=== PATIENT | female | born 1995 | race Caucasian/White ===

== ENCOUNTER 2020-08-23 09:13 | Emergency (ER) | payer OTHER, SELFPAY ==
[2020-08-23 09:20] VITALS: BP 128/76; PULSE 64; RESP 16; TEMP 36.6; O2SAT 99
[2020-08-23] MEDS: LIDOCAINE HCL 1% LOCAL INJ 20 ML VIAL (09:36)
[2020-08-23] MEDS: TETANUS,DIPHTHERIA,AC PERTUSSIS ADULT 0.5 ML (ADACEL) (09:51)
--- NOTE | 2020-08-23 10:08 | ED.WOUNDLAC ---
HPI - Wound/Laceration General Chief Complaint: Wound/Laceration Stated Complaint: CUT FOOT Time Seen by Provider: 08/23/20 09:23 Source: patient and family Mode of arrival: ambulatory Limitations: no limitations History of Present Illness HPI narrative: Right great toe laceration x 30 mins. Onset (ago): minute(s) Location: other (right great toe) Extremity Location: Right: foot Place: work Patient tetanus UTD: No Context: accidental Associated symptoms: none Treatments prior to arrival: bandage Related Data Allergies Allergy/AdvReac Type Severity Reaction Status Date / Time No Known Allergies Allergy Unknown Unverified 08/30/16 17:36 Review of Systems Review of Systems: All systems reviewed & are unremarkable except as noted in HPI and below Constitutional: Constitutional: Reports no additional constitutional complaints Eyes: Eyes: Reports no additional eye complaints ENT: Reports system reviewed and no additional complaints, except as documented Cardiovascular: Cardiovascular: Reports no additional cardiovascular complaints Respiratory: Respiratory: Reports no additional respiratory complaints Gastrointestinal: Gastrointestinal: Reports no additional gastrointestinal complaints Genitourinary: Genitourinary: Reports no additional female genitourinary complaints Musculoskeletal: Musculoskeletal: Reports as per HPI Comments: right great toe laceration Integumentary/Breasts: Skin/Breast: Reports system reviewed and no additional complaints, except as docu Neurologic: Reports system reviewed and no additional complaints, except as documented Psychiatric: Psychiatric: Reports no additional psychiatric complaints Endocrine: Endocrine: Reports no additional endocrine complaints Hematologic/Lymphatic: Hematologic/Lymphatic: Reports no additional hematologic/lymphatic complaints Allergic/Immunologic: Allergic/Immunologic: Reports no additional allergic/immunologic complaints PMFSH Comments Pt had no significant Medical or surgical history. Exam Const: General: no acute distress and alert Orientation/consciousness: patient oriented x3 HENMT: Head: normal to inspection Ears: TM's normal bilaterally Face and sinus: normal facial exam Mouth: Yes moist mucous membranes Eyes: Conjunctivae: conjunctivae normal Pupils: Equal, round and reactive pupils present EOM: EOMs intact bilaterally Neck: Neck: normal visual inspection and no lymphadenopathy Other: supple neck Chest: Chest palpation & inspection: normal inspection of the chest Resp: Effort & Inspection: normal respiratory effort Auscultation: clear to auscultation bilaterally Cardio: Rate: regular rate Rhythm: regular rhythm GI: GI Palp: Yes Soft to palpation Percussion: Yes normal to percussion and Yes other (non-tender.) Auscultation: normal bowel sounds Back/Spine/Pelvis: Back: no CVA tenderness Skin: General skin exam: normal color Rashes: no rashes Wounds: no wounds (1.5 cm well approx linear laceration to medial right great toe. no bleedin) Neuro: General: patient oriented x3, moves all extremities and no focal motor deficits Speech: normal speech Extrem: General: normal to inspection (right great toe laceration) Psych: Mental Status: mental status grossly normal Affect: normal affect Attitude: cooperative Thought content: Yes Normal thought content present Course Course Emergency Course: pt was stable in the ED. the right great toe laceration was irrigated, LA via 1% lidocaine + #2 3/0 nylon sutures were placed for hemostasis and skin approximation. Well tolerated. pt for home with Amoxil Rx. Reevaluation(s) Date: 08/23/20 Time: 10:20 Vital Signs Vital signs: Vital Signs Temperature 36.6 C 08/23/20 09:20 Pulse Rate 64 08/23/20 09:20 Respiratory Rate 16 08/23/20 09:20 Blood Pressure 128/76 08/23/20 09:20 Pulse Oximetry 99 08/23/20 09:20 Temperature 36.6 C 08/23/20 09:20 Pulse Rate 64 06/3
--- NOTE | 2020-08-23 10:13 | PC.NURSE ---
2 sutures placed in laceration to right great tor by erp
[2020-08-23] MEDS: IBUPROFEN 400 MG TABLET 800 MG PO (10:25)
[2020-08-23 10:30] VITALS: BP 117/66; PULSE 60; RESP 13; O2SAT 100
--- NOTE | 2020-08-23 10:48 | PC.NURSE ---
bulky dressing placed on right great toe as directed by erp
== END 2020-08-23 10:40 | disposition home or self-care (01) ==
PROVIDERS: Emergency Provider Emergency Medicine
DX: S91.111A Laceration without foreign body of right great toe without damage to nail, initial encounter (principal); W45.8XXA Other foreign body or object entering through skin, initial encounter
CPT/HCPCS: 12001; 90471; 90715; 99283; A9270

== ENCOUNTER 2021-05-16 15:08 | Outpatient (CLI) | payer OTHER, SELFPAY ==
[2021-05-16 16:54] LABS: Basophils Percent Auto 0.4 % (0.2-1.2); Eosinophils Percent Auto 0.2 % (0-4.4); Hematocrit 38.4 % (37.0-47.0); Hemoglobin 12.8 g/dL (12.0-15.0); Immature Granulocyte Absolute 0.03 K/mm3 (0.00-0.031); Immature Granulocyte Percent A 0.3 % (0-0.5); Lymphocytes Absolute Auto 2.14 K/mm3 (0.9-3.2); Lymphocytes Percent Auto 21.9 % (18.3-44.2); Mean Corpuscular HGB Conc 33.3 g/dl (32-36); Mean Platelet Volume 11.3 fl (7.4-10.4); Monocytes Absolute Auto 0.6 K/mm3 (0.1-0.6); Monocytes Percent Auto 6.2 % (2.6-8.5); Neutrophils Absolute Auto 6.9 K/mm3 (1.3-6.7); Platelet Count Result 278 k/mm3 (150-375); Red Blood Count 4.13 M/mm3 (4.2-5.4); Red Cell Distribution Width 12.4 % (11.5-14.5); White Blood Count 9.8 K/mm3 (4.5-10.0)
[2021-05-16 17:27] LABS: Alanine Aminotransferase 11 U/L (4-35); Albumin Level 5.1 g/dL (3.5-5.1); Alkaline Phosphatase 71 U/L (38-126); Anion Gap 10 mmol/L (8-16); Aspartate Amino Transferase 24 U/L (14-36); Bilirubin,Total 0.6 mg/dL (0.2-1.3); Blood Urea Nitrogen 10 mg/dL (7-17); Calcium 9.3 mg/dL (8.4-10.2); Carbon Dioxide 25 mmol/L (22-30); Chloride 101 mmol/L (98-107); Estimated Glomerular Filt Rate > 60; Glucose 80 mg/dL (65-110); Potassium 3.9 mmol/L (3.4-5.0); Sodium 136 mmol/L (137-145)
[2021-05-16 18:06] LABS: HIV 1/2 Ab P24 Ag Result Negative (Negative)
[2021-05-16 18:48] LABS: Hepatitis C Virus Antibody Negative (Negative)
[2021-05-17 11:17] LABS: Rapid Plasma Reagin Non-Reactive (NonReactive)
== END 2021-05-16 15:09 | disposition home or self-care (01) ==
LOC: ANHLAB 15:10
PROVIDERS: PCP Internal Medicine; Visit Provider Nurse Practitioner
DX: N89.8 Other specified noninflammatory disorders of vagina (principal)
CPT/HCPCS: 36415; 80053; 85025; 86592; 86703; 86803; 87491; 87591; G0432

== ENCOUNTER 2021-10-12 14:17 | Emergency (ER) | payer OTHER, SELFPAY ==
[2021-10-12 14:23] VITALS: BP 147/93; PULSE 86; RESP 20; TEMP 36.5; O2SAT 98
--- NOTE | 2021-10-12 14:53 | ED.EYEPROB ---
HPI - Eye Problem General Chief complaint: Eye Problems Stated complaint: scratched left eye Time Seen by Provider: 10/12/21 14:50 Source: patient, RN notes reviewed and old records reviewed Mode of arrival: ambulatory Limitations: no limitations History of Present Illness HPI Narrative: 26 year old female who presents to [facility] care with complaints of scratching her left eye this morning with a [place] plant leave when bent over gardening. Patient reports that she has irritation to her left eye especially when blinking some eye discomfort and also visual blurring. Left eye sclera clear and no conjunctival redness. Patient reports that she has placed warm saline compresses to her eye.Vicsual acuity left eye 20/50, right eye 20/25 without corrective lenses. MD chief complaint: eye pain and vision change (blurry) Onset (ago): hour(s) (this morning) Location: left eye Eye Symptoms: pain, blurry vision and photophobia Severity scale (1-10): 8 Treatments Prior to Arrival: other (warm compresses) Related Data Allergies Allergy/AdvReac Type Severity Reaction Status Date / Time No Known Allergies Allergy Unknown Verified 10/12/21 14:52 Review of Systems Review of Systems: CONSTITUTIONAL: Denies fever, chills, or sweats. EYES: Positive visual changes, redness upper eyelid, no discharge pain and scratchy feeling left eye ENT: Denies rhinorrhea, congestion, sore throat, or otalgia. CARDIOVASCULAR: Denies chest pain, palpitations, or edema. RESPIRATORY: Denies cough or dyspnea. GASTROINTESTINAL: Denies abdominal pain, nausea, vomiting, or diarrhea. GENITOURINARY: Denies dysuria or hematuria. SKIN: Denies rash or itching. MUSCULOSKELETAL: Denies back pain, joint pain, or myalgia. NEUROLOGIC: Denies headache, numbness, or weakness. PSYCHIATRIC: Positive history of anxiety or depression. All systems reviewed & are unremarkable except as noted in HPI and below PMFSH Past Medical History Medical History (Updated 10/13/21 @ 08:20 by An Hill NP) Allergies Anxiety Depression History of chlamydia 2013 History of gonorrhea 2013 Surgical History Surgical History (Updated 09/19/21 @ 11:20 by Jenae Sánchez CMA) H/O removal of cyst Family History Family History Grandparent Alcoholism Mother Alcoholism Depression Father Hypertension Social History Social History (Updated 09/19/21 @ 11:20 by Jenae Sánchez CMA) Smoking packs per day: 0.5 Smoking cigarettes per day: 10.0 Years smoked: 10 Smoking pack-years: 5.00 Smoking status: Current every day smoker Tobacco type: cigarettes and e-cigarettes/vaping Alcohol intake: current Drinks per week: 10 Alcohol use details: 5 beers twice a week Substance use: current Substance use type: marijuana Additional occupation/education comments: self-employed Agree to blood products: Yes Comments At time of signature, agree with nursing past medical, surgical, social and family history. There is no relevant family history pertinent to the presenting complaint Exam Narrative: GENERAL: Well-appearing, well-nourished, and in no acute distress. HEAD: Normocephalic, atraumatic. EYES: PERRLA and EOMI. left eye upper eyelid swollen with pain and scratchy feeling to left eye no drainage or conjunctival redness, sclera clear, no sharp pain verbalized ENT: Nares clear, no rhinorrhea or epistaxis. Mucous membranes moist. NECK: Supple. No lymphadenopathy CHEST: Clear to auscultation. No respiratory distress. SaO2 98% on room air no tachypnea HEART: Regular rate and rhythm. No murmur heard. Normal peripheral pulses. ABDOMEN: Soft, nontender, nondistended, normal active bowel sounds. EXTREMITIES: Normal range of motion. No edema. SKIN: Warm, dry, no rash. NEURO: No focal deficits. Alert and oriented x3. Course Course Level of Care: Express Care Visit Vital Signs Vital signs: Vital Signs Tempera
== END 2021-10-12 15:10 | disposition home or self-care (01) ==
PROVIDERS: Emergency Provider Registered Nurse
DX: S05.02XA Injury of conjunctiva and corneal abrasion without foreign body, left eye, initial encounter (principal); X58.XXXA Exposure to other specified factors, initial encounter; F17.210 Nicotine dependence, cigarettes, uncomplicated; F17.290 Nicotine dependence, other tobacco product, uncomplicated
CPT/HCPCS: 99213; A9270; G0463

== ENCOUNTER 2022-04-08 15:14 | Emergency (ER) | payer OTHER, SELFPAY ==
[2022-04-08 15:21] VITALS: BP 156/80; PULSE 81; RESP 16; TEMP 37.1; O2SAT 98
--- NOTE | 2022-04-08 15:43 | ED.URI ---
HPI - URI/Sore Throat General Chief Complaint: Upper Respiratory Infection Stated Complaint: Sore Throat Time Seen by Provider: 04/08/22 15:40 Source: patient, RN notes reviewed and old records reviewed Mode of arrival: ambulatory Limitations: no limitations History of Present Illness HPI Narrative: 27 year old female who presents to express are with complaints of sore throat for one day with low grade temperature of 100F. Patient also reports some nasal congestion and drainage denies any cough or any shortness of breath. Patient states that she has been taking Ibuprofen for her discomfort which she rates as 8 described as sharp and with painful swallowing. Patient reports that she has noted white spots in the back of her throat. MD elicited complaint: sore throat Onset (ago): day(s) (1) Pain scale (0-10): 8 Able to tolerate fluids by mouth: Yes Treatments prior to arrival: ibuprofen Related Data Allergies Allergy/AdvReac Type Severity Reaction Status Date / Time No Known Allergies Allergy Unknown Verified 10/12/21 14:52 Review of Systems Review of Systems: CONSTITUTIONAL: Reports malaise, chills, sweats, or fever. EYES: Denies visual changes, redness, or discharge. ENT: Reports rhinorrhea, congestion, sinus pain,no otalgia positive sore throat. CARDIOVASCULAR: Denies chest pain, palpitations, or edema. RESPIRATORY: Reports no cough.? Denies dyspnea. GASTROINTESTINAL: Denies abdominal pain, nausea, vomiting, diarrhea SKIN: Denies rash or itching. MUSCULOSKELETAL: Denies myalgia. NEUROLOGIC: Denies headache. All systems reviewed & are unremarkable except as noted in HPI and below PMFSH Past Medical History Medical History Allergies Anxiety Depression History of chlamydia 2013 History of gonorrhea 2013 Surgical History Surgical History H/O removal of cyst Family History Family History Grandparent Alcoholism Mother Alcoholism Depression Father Hypertension Social History Social History (Updated 04/09/22 @ 21:17 by An Hill NP) Smoking packs per day: 0.5 Smoking cigarettes per day: 10.0 Years smoked: 10 Smoking pack-years: 5.00 Smoking status: Former smoker Tobacco type: cigarettes and e-cigarettes/vaping Alcohol intake: current Alcohol use details: social 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 There is no relevant family history pertinent to the presenting complaint Exam Narrative: GENERAL: Well-appearing, well-nourished, and in no acute distress. HEAD: Normocephalic EYES: PERRLA, conjunctivae clear ENT: Nares clear, turbinates edematous and erythematous, clear discharge. Mucous membranes moist. TM pearly snowden with dull light reflex bilaterally; no tragal tenderness. Oropharynx erythematous without lesions. Tonsils enlarged and with white exudate on tonsils,painful swallowing, no drooling, no hoarseness, no trismus, uvula midline. NECK: Supple. lymphadenopathy CHEST: Clear to auscultation, breath sounds equal. No wheezing, rhonchi, rales, or stridor. No respiratory distress, speaks in full sentences.no cough, SAO2 98% on room air HEART: Regular rate and rhythm. No murmur heard. SKIN: Warm, dry, no rash. NEURO: Alert and oriented x3. PSYCH: Normal mood and affect Course Course Emergency Course: Patient is aware of diagnosis, understands and agrees to treatment plan.? Anticipatory guidance given.? Patient agrees to follow-up as directed and is aware of reasons to seek care at the emergency department. Portions of
== END 2022-04-08 16:01 | disposition home or self-care (01) ==
PROVIDERS: Emergency Provider Registered Nurse
DX: J02.0 Streptococcal pharyngitis (principal); F17.290 Nicotine dependence, other tobacco product, uncomplicated
CPT/HCPCS: 87880; 99213; G0463

== ENCOUNTER 2022-12-30 08:26 | Emergency (ER) | payer OTHER, SELFPAY ==
[2022-12-30 08:32] VITALS: BP 144/89; PULSE 108; RESP 20; TEMP 37; O2SAT 100
[2022-12-30] MEDS: methylPREDNISolone SOD SUCC 125 MG VIAL IM (08:55)
--- NOTE | 2022-12-30 08:56 | ED.URI ---
HPI - URI/Sore Throat General Chief Complaint: Upper Respiratory Infection Stated Complaint: throat /ear Time Seen by Provider: 12/30/22 08:50 History of Present Illness HPI Narrative: 27-year-old female presented for complaint of sore throat worsening over the past 3 days. She states she woke this morning with the throat more swollen. She is able to maintain secretions and tolerate small amounts of liquids. Also reports pain to the right ear. Denies headache, cough, nausea vomiting, diarrhea, fevers or chills. Denies sick contacts. Has not taken anything for symptoms. Related Data Allergies Allergy/AdvReac Type Severity Reaction Status Date / Time No Known Allergies Allergy Unknown Verified 12/30/22 09:02 Review of Systems Review of Systems: CONSTITUTIONAL: Denies body aches, fever, chills, or sweats. EYES: Denies visual changes, redness, or discharge. ENT: Reports sore throat, right ear pain Denies rhinorrhea, congestion CARDIOVASCULAR: Denies chest pain, palpitations, or edema. RESPIRATORY: Denies dyspnea. GASTROINTESTINAL: Denies abdominal pain, nausea, vomiting, or diarrhea. SKIN: Denies rash, itching, or wounds. MUSCULOSKELETAL: Denies back pain, joint pain, or myalgia. 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 EYES: conjunctivae clear ENT: Mucous membranes moist. TM pearly snowden with normal light reflex bilaterally; no tragal tenderness. Oropharynx erythematous Right soft palate swelling; Tonsils enlarged Right 4+ Left 3+ with exudate. Hot potato voice. No drooling, no hoarseness, no trismus, uvula midline. No tripod positioning. NECK: Supple. No lymphadenopathy CHEST: Clear to auscultation, breath sounds equal. No respiratory distress, speaks in full sentences. HEART: Regular rate and rhythm. No murmur heard. SKIN: Warm, dry, no rash. NEURO: Alert and oriented x3. Course Course Emergency Course: Patient is aware of diagnosis, understands and agrees to treatment plan. Anticipatory guidance given. Patient agrees to follow-up as directed and is aware of reasons to seek care at the emergency department. Portions of this record may have been created with voice recognition software Level of Care: Express Care Visit Vital Signs Vital signs: Vital Signs Temperature 98.6 F 12/30/22 08:32 Pulse Rate 108 H 12/30/22 08:32 Respiratory Rate 20 12/30/22 08:32 Blood Pressure 144/89 H 12/30/22 08:32 Pulse Oximetry 100 12/30/22 08:32 Oxygen Delivery Room Air 12/30/22 08:32 Temperature 98.6 F 12/30/22 08:32 Pulse Rate 108 H 12/30/22 08:32 Respiratory Rate 20 12/30/22 08:32 Blood Pressure 144/89 H 12/30/22 08:32 Pulse Oximetry 100 12/30/22 08:32 Oxygen Delivery Room Air 12/30/22 08:32 Transfer Transfered to: [facility] Transportation: Other ( Private vehicle) Transfer rationale: Pt is agr
== END 2022-12-30 09:00 | disposition short-term general hospital (02) ==
PROVIDERS: Emergency Provider Nurse Practitioner Family
DX: J02.9 Acute pharyngitis, unspecified (principal); F17.210 Nicotine dependence, cigarettes, uncomplicated; F17.290 Nicotine dependence, other tobacco product, uncomplicated
CPT/HCPCS: 87081; 87880; 96372; 99213; G0463; J2930

== ENCOUNTER 2023-02-27 17:50 | Emergency (ER) | payer OTHER, SELFPAY ==
[2023-02-27 17:56] VITALS: BP 150/101; PULSE 98; RESP 18; TEMP 36.2; O2SAT 100
--- NOTE | 2023-02-27 18:41 | PC.NURSE ---
Pt walked out of dept with boyfriend. This RN attempted to bring her back to room. Boyfriend states she just wants to go Pt walked out with a steady gait
== END 2023-02-27 18:40 | disposition left against medical advice (07) ==
LOC: ANHED 18:55
DX: S40.029A Contusion of unspecified upper arm, initial encounter (principal)
CPT/HCPCS: 99199

== ENCOUNTER 2023-03-17 11:57 | Emergency (ER) | payer OTHER, SELFPAY ==
[2023-03-17 12:06] VITALS: BP 168/97; PULSE 99; RESP 16; TEMP 36.7; O2SAT 100
--- NOTE | 2023-03-17 12:12 | ED.SKABFB ---
HPI - Skin/Abscess/Foreign Bdy General Chief complaint: Skin/Abscess/Foreign Body Stated complaint: Bug Bites Time Seen by Provider: 03/17/23 12:07 Source: patient and RN notes reviewed Mode of arrival: ambulatory Limitations: no limitations History of Present Illness HPI narrative: Patient presents today complaining of insect bites to her back and left leg that were sustained last night while she was staying at a hotel. She has been staying there the last 5 nights. States her boyfriend saw bedbugs in the bed today. She has not tried anything for her itching today. Related Data Home Medications Medication Instructions Recorded Confirmed No Home Medications 03/17/23 03/17/23 Allergies Allergy/AdvReac Type Severity Reaction Status Date / Time No Known Allergies Allergy Unknown Verified 03/17/23 12:12 Review of Systems Review of Systems: CONSTITUTIONAL: Denies body aches, fever, chills, or sweats. EYES: Denies visual changes, redness, or discharge. ENT: Denies rhinorrhea, congestion, sore throat, or otalgia. CARDIOVASCULAR: Denies chest pain, palpitations, or edema. RESPIRATORY: Denies cough or dyspnea. GASTROINTESTINAL: Denies abdominal pain, nausea, vomiting, or diarrhea. GENITOURINARY: Denies dysuria or hematuria. SKIN: + insect bite MUSCULOSKELETAL: Denies back pain, joint pain, or myalgia. NEUROLOGIC: Denies headache, numbness, tingling, or weakness. PSYCH: Denies depression or anxiety. 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 Please see nursing chart for further information. There is no relevant family history pertinent to the presenting complaint Exam Narrative: GENERAL: Well-appearing, well-nourished, and in no acute distress. HEAD: Normocephalic, atraumatic. EYES: EOMI. No redness or drainage. Conjunctivae normal. ENT: Mucous membranes pink and moist. NECK: Normal AROM. CHEST: No respiratory distress. MUSCULOSKELETAL: No bony tenderness. EXTREMITIES: Normal range of motion. No edema. SKIN: Warm, dry. Capillary refill normal. Normal skin turgor. Multiple large erythematous welts to the back, left leg, and right arm. No fluctuance. NEURO: No focal deficits. Alert and oriented x3. Gait steady. PSYCH: Normal affect. No signs of depression or anxiety. Course Course Level of Care: Express Care Visit Vital Signs Vital signs: Vital Signs Temperature 98.1 F 03/17/23 12:06 Pulse Rate 99 03/17/23 12:06 Respiratory Rate 16 03/17/23 12:06 Blood Pressure 168/97 H 03/17/23 12:06 Pulse Oximetry 100 03/17/23 12:06 Oxygen Delivery Room Air 03/17/23 12:06 Temperature 98.1 F 03/17/23 12:06 Pulse Rate 99 03/17/23 12:06 Respiratory Rate 16 03/17/23 12:06 Blood Pressure 168/97 H 03/17/23 12:06 Pulse Oximetry 100 03/17/23 12:06 Oxygen Del
== END 2023-03-17 12:22 | disposition home or self-care (01) ==
PROVIDERS: Emergency Provider Nurse Practitioner
DX: S80.862A Insect bite (nonvenomous), left lower leg, initial encounter (principal); S40.861A Insect bite (nonvenomous) of right upper arm, initial encounter; W57.XXXA Bitten or stung by nonvenomous insect and other nonvenomous arthropods, initial encounter; F17.210 Nicotine dependence, cigarettes, uncomplicated; F17.290 Nicotine dependence, other tobacco product, uncomplicated
CPT/HCPCS: 99211; G0463

== ENCOUNTER 2023-06-28 05:28 | Emergency (ER) | payer OTHER, SELFPAY ==
[2023-06-28 05:34] VITALS: BP 150/93; PULSE 92; RESP 16; TEMP 37.1; O2SAT 100
[2023-06-28 06:16] VITALS: BP 131/92; PULSE 84; RESP 14; O2SAT 100
[2023-06-28 06:28] LABS: Appearance Urine Clear (Clear); Basophils Absolute Auto 0.1 K/mm3 (0.0-0.1); Basophils Percent Auto 0.6 % (0.2-1.2); Bilirubin Urine Negative (Negative); Blood Urine Negative (Negative); Color Urine Yellow (Yellow); Eosinophils Percent Auto 0.2 % (0-4.4); Glucose Urine UA Negative (Negative); Hematocrit 37.4 % (37.0-47.0); Hemoglobin 12.5 g/dL (12.0-15.0); Immature Granulocyte Absolute 0.06 K/mm3 (0.00-0.031); Immature Granulocyte Percent A 0.6 % (0-0.5); Ketones Urine Negative (Negative); Leukocyte Esterase Ur Negative LEU/UL (Negative); Lymphocytes Absolute Auto 1.47 K/mm3 (0.9-3.2); Lymphocytes Percent Auto 15.7 % (18.3-44.2); Mean Corpuscular HGB Conc 33.4 g/dl (32-36); Mean Corpuscular Hemoglobin 30.2 pg (26-34); Mean Corpuscular Volume 90.3 fl (80-100); Mean Platelet Volume 10.2 fl (7.4-10.4); Monocytes Absolute Auto 0.6 K/mm3 (0.1-0.6); Monocytes Percent Auto 5.9 % (2.6-8.5); Neutrophils Absolute Auto 7.2 K/mm3 (1.3-6.7); Nitrate Urine Negative (Negative); Platelet Count Result 455 k/mm3 (150-375); Protein Urine Negative (Negative); Red Blood Count 4.14 M/mm3 (4.2-5.4); Red Cell Distribution Width 12.3 % (11.5-14.5); Specific Grav Ur 1.008 (1.001-1.035); Urobilinogen Urine 0.2 mg/dL (<2.0); White Blood Count 9.4 K/mm3 (4.5-10.0); pH Urine 6.5 (5.0-9.0)
[2023-06-28 06:30] LABS: Add Urine Microscopic? NO
[2023-06-28 06:44] LABS: Ethanol 51 mg/dL (<10)
[2023-06-28 06:46] LABS: Alanine Aminotransferase 15 U/L (6-35); Alkaline Phosphatase 83 U/L (38-126); Anion Gap 11 mmol/L (4-12); Aspartate Amino Transferase 28 U/L (14-36); Bilirubin,Total 0.5 mg/dL (0.2-1.3); Blood Urea Nitrogen 8 mg/dL (7-17); Calcium 9.4 mg/dL (8.4-10.2); Carbon Dioxide 23 mmol/L (22-30); Chloride 108 mmol/L (98-107); Estimated CRCL calculation 104 ml/min; Estimated Glomerular Filt Rate > 60; Glucose 93 mg/dL (65-110); Potassium 4.2 mmol/L (3.4-5.0); Sodium 142 mmol/L (137-145)
[2023-06-28 06:47] LABS: Barbiturate Screen Urine Negative (Negative); Benzodiazepines Screen Urine Negative (Negative)
[2023-06-28 06:58] LABS: Cannabinoid Screen Urine Positive (Negative); Cocaine Screen Urine Negative (Negative); Methadone Screen Urine Negative (Negative); Opiate Screen Urine Negative (Negative); Phencyclidine Screen Urine Negative (Negative)
[2023-06-28 07:00] VITALS: BP 131/90; PULSE 69; RESP 16; O2SAT 100
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
[2023-06-28 08:00] VITALS: BP 121/78; PULSE 76; RESP 16; O2SAT 99
[2023-06-28 09:25] VITALS: BP 132/89; PULSE 88; RESP 12; O2SAT 100
[2023-06-28 14:01] LABS: Amphetamine Screen Urine Positive (Negative)
== END 2023-06-28 09:25 | disposition home or self-care (01) ==
PROVIDERS: Emergency Medicine; Emergency Provider Emergency Medicine
DX: S71.111A Laceration without foreign body, right thigh, initial encounter (principal); F10.129 Alcohol abuse with intoxication, unspecified; Y90.2 Blood alcohol level of 40-59 mg/100 ml; F41.9 Anxiety disorder, unspecified; Z87.891 Personal history of nicotine dependence; X78.8XXA Intentional self-harm by other sharp object, initial encounter
CPT/HCPCS: 36415; 80053; 80307; 81003; 81025; 84443; 85025; 99284

== ENCOUNTER 2023-07-19 05:07 | Emergency (ER) | payer OTHER, SELFPAY ==
--- NOTE | ~2023-07-19 | CT_ITS ---
EXAMINATION: CT knee RT wo con DATE: 07/19/2023 06:04 INDICATION: Right knee pain. Fall. TECHNIQUE: Computed tomography (CT) of the right knee was performed without intravenous contrast. Aut omated exposure control and iterative reconstruction technique were employed. The dose-length product was 468.33 mGy-cm. COMPARISON: Right knee radiographs 07/19/2023 FINDINGS: Bone alignment is normal. No fracture. Joint spaces are normal. There is a prepatellar lace ration. There is a small knee joint effusion. IMPRESSION: 1. Prepatellar laceration. No radiopaque foreign body. 2. Small knee joint effusion. Reviewed, dictated and finalized at location A.
--- NOTE | ~2023-07-19 | XR_ITS ---
EXAMINATION: XR knee RT 3V DATE: 07/19/2023 05:36 INDICATION: Anterior knee pain. Fall. TECHNIQUE: 4 views of right knee were obtained. COMPARISON: None. FINDINGS: Bone alignment is normal. No fracture. Joint spaces are normal. No knee joint effusion. The re is a prepatellar laceration. IMPRESSION: 1. No fracture. Reviewed, dictated and finalized at location A. IMPRESSION: 1. No fracture.
[2023-07-19 05:09] VITALS: BP 132/98; PULSE 93; RESP 18; TEMP 36.6; O2SAT 100
--- NOTE | 2023-07-19 05:14 | ED.LOWEXIN ---
HPI - Extremity Injury (Lower) General Chief Complaint: Extremity Injury, Lower Stated Complaint: laceration Time Seen by Provider: 07/19/23 05:12 Source: patient Mode of arrival: ambulatory Limitations: no limitations History of Present Illness HPI Narrative: Patient is a 28-year-old female with a right knee injury prior to arrival. She hit her knee on the corner of the bed and sustained a large irregular shaped laceration. She has some pain at the right knee. Tetanus shot up-to-date 3 years ago. complaint: knee injury ( Right) Onset (ago): hour(s) (1) Injury: Right: knee Type of Injury: blunt Place: home Severity: mild Severity scale (1-10): 2 Relieving factors: immobilization Exacerbating factors: weight bearing, movement and palpation Context: direct blow and walking Associated symptoms: swelling and able to partially bear weight Other symptoms: none Related Data Home Medications Medication Instructions Recorded Confirmed No Home Medications 03/17/23 07/19/23 Allergies Allergy/AdvReac Type Severity Reaction Status Date / Time No Known Allergies Allergy Unknown Verified 07/19/23 05:16 Review of Systems Review of Systems: All systems reviewed & are unremarkable except as noted in HPI and below Constitutional: Constitutional: Reports no additional constitutional complaints Eyes: Eyes: Reports no additional eye complaints ENT: Reports system reviewed and no additional complaints, except as documented Cardiovascular: Cardiovascular: Reports no additional cardiovascular complaints Respiratory: Respiratory: Reports no additional respiratory complaints Gastrointestinal: Gastrointestinal: Reports no additional gastrointestinal complaints Genitourinary: Genitourinary: Reports no additional female genitourinary complaints Musculoskeletal: Musculoskeletal: Reports no additional musculoskeletal complaints Integumentary/Breasts: Skin/Breast: Reports system reviewed and no additional complaints, except as docu Neurologic: Reports system reviewed and no additional complaints, except as documented Psychiatric: Psychiatric: Reports no additional psychiatric complaints Endocrine: Endocrine: Reports no additional endocrine complaints Hematologic/Lymphatic: Hematologic/Lymphatic: Reports no additional hematologic/lymphatic complaints Allergic/Immunologic: Allergic/Immunologic: Reports no additional allergic/immunologic complaints PMFSH Past Medical History Medical History Allergies Anxiety Depression History of chlamydia 2013 History of gonorrhea 2013 Surgical History Surgical History H/O removal of cyst Family History Family History Grandparent Alcoholism Mother Alcoholism Depression Father Hypertension Social History Social History Smoking packs per day: 0.5 Smoking cigarettes per day: 10.0 Years smoked: 10 Smoking pack-years: 5.00 Smoking status: Former smoker Tobacco type: cigarettes and e-cigarettes/vaping Alcohol intake: current Alcohol use details: social Substance use type: marijuana Last use: clean for over 1 year Living arrangements: with family Gender identity (if verbalized by the patient): Female Agree to blood products: Yes Exam Const: General: healthy appearing Nutritional Appearance: well nourished Orientation/consciousness: patient oriented x3 HENMT: Head: normal to inspection Ears: external ears normal Face/Nose/Sinus: Normal external nose present Eyes: Conjunctivae: conjunctivae normal Pupils: Equal, round and reactive pupils present EOM: EOMs intact bilaterally Neck: Neck: normal visual inspection Chest: Chest palpation & inspection: normal inspection of the chest Resp: Effort & Inspection: normal re
[2023-07-19] MEDS: HYDROcodone/acetaminophen (*CRX) 5-325 MG TABLET 1 TAB PO (06:03)
== END 2023-07-19 06:50 | disposition home or self-care (01) ==
PROVIDERS: Emergency Provider Emergency Medicine
DX: S80.01XA Contusion of right knee, initial encounter (principal); S81.011A Laceration without foreign body, right knee, initial encounter; W22.03XA Walked into furniture, initial encounter; F41.8 Other specified anxiety disorders; Z87.891 Personal history of nicotine dependence
CPT/HCPCS: 12002; 73562; 73700; 99284; A9270

== ENCOUNTER 2023-07-25 17:10 | Emergency (ER) | payer OTHER, SELFPAY ==
[2023-07-25 17:10] VITALS: BP 132/89; PULSE 88; RESP 14; TEMP 36.8; O2SAT 99
[2023-07-25] MEDS: NEOMYCIN/POLYMYXIN/BACITRACIN OINTMENT PACKET 1 PACKET TOPICAL (17:36)
--- NOTE | 2023-07-25 17:37 | ED.SKABFB ---
HPI - Skin/Abscess/Foreign Bdy General Chief complaint: Skin/Abscess/Foreign Body Stated complaint: arianna removed Source: patient Mode of arrival: ambulatory Limitations: no limitations History of Present Illness HPI narrative: Patient is a 28-year-old female with a right knee laceration and [address] for removal today[address] She is having some redness and slight discharge from the open wound. She has been using lidocaine patches topically. complaint: laceration Onset (ago): day(s) (7) Tetanus up to date: yes Location: RLE ( Knee) Severity: mild Severity scale (1-10): 1 Quality: burning and pruritic Pain Consistency: intermittent Relieving factors: none Exacerbating factors: none Context: other ( patient here to remove arianna) Associated symptoms: denies other symptoms Treatments prior to arrival: none Related Data Allergies Allergy/AdvReac Type Severity Reaction Status Date / Time No Known Allergies Allergy Unknown Verified 07/25/23 17:43 Review of Systems Review of Systems: All systems reviewed & are unremarkable except as noted in HPI and below Constitutional: Constitutional: Reports no additional constitutional complaints Eyes: Eyes: Reports no additional eye complaints ENT: Reports system reviewed and no additional complaints, except as documented Cardiovascular: Cardiovascular: Reports no additional cardiovascular complaints Respiratory: Respiratory: Reports no additional respiratory complaints Gastrointestinal: Gastrointestinal: Reports no additional gastrointestinal complaints Genitourinary: Genitourinary: Reports no additional female genitourinary complaints Musculoskeletal: Musculoskeletal: Reports no additional musculoskeletal complaints Integumentary/Breasts: Skin/Breast: Reports system reviewed and no additional complaints, except as docu Neurologic: Reports system reviewed and no additional complaints, except as documented Psychiatric: Psychiatric: Reports no additional psychiatric complaints Endocrine: Endocrine: Reports no additional endocrine complaints Hematologic/Lymphatic: Hematologic/Lymphatic: Reports no additional hematologic/lymphatic complaints Allergic/Immunologic: Allergic/Immunologic: Reports no additional allergic/immunologic complaints PMFSH Past Medical History Medical History Allergies Anxiety Depression History of chlamydia 2013 History of gonorrhea 2013 Surgical History Surgical History H/O removal of cyst Family History Family History Grandparent Alcoholism Mother Alcoholism Depression Father Hypertension Social History Social History Smoking packs per day: 0.5 Smoking cigarettes per day: 10.0 Years smoked: 10 Smoking pack-years: 5.00 Smoking status: Former smoker Tobacco type: cigarettes and e-cigarettes/vaping Alcohol intake: current Alcohol use details: social Substance use type: marijuana Last use: clean for over 1 year Living arrangements: with family Gender identity (if verbalized by the patient): Female Agree to blood products: Yes Exam Const: General: healthy appearing Nutritional Appearance: well nourished Orientation/consciousness: patient oriented x3 HENMT: Head: normal to inspection Ears: external ears normal Face/Nose/Sinus: Normal external nose present Eyes: Conjunctivae: conjunctivae normal Pupils: Equal, round and reactive pupils present EOM: EOMs intact bilaterally Neck: Neck: normal visual inspection Chest: Chest palpation & inspection: normal inspection of the chest Resp: Effort & Inspection: normal respiratory effort and not labored Auscultation: clear to auscultation bilaterally Cardio: Rate: regular rate Rhythm: regular rhythm Heart sounds: no murmur
--- NOTE | 2023-07-26 13:58 | PC.NURSE ---
pt call , rx not covered by [facility]. pt requested to sent to [facility] in [place]. rx called in to [facility]. cancelled at [facility]. spoke with zach at [facility].
== END 2023-07-25 17:44 | disposition home or self-care (01) ==
PROVIDERS: Emergency Provider Emergency Medicine
DX: Z48.02 Encounter for removal of sutures (principal); S81.011D Laceration without foreign body, right knee, subsequent encounter; B96.89 Other specified bacterial agents as the cause of diseases classified elsewhere; X58.XXXD Exposure to other specified factors, subsequent encounter
CPT/HCPCS: 15853; 99283

== ENCOUNTER 2024-04-11 07:35 | Emergency (ER) | payer OTHER, SELFPAY ==
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
[2024-04-11 07:31] VITALS: BP 131/87; PULSE 69; RESP 16; TEMP 36.8; O2SAT 100
--- OUTSIDE RECORDS SUMMARY | 2024-04-11 08:14 | XMS_ITS | Clinical Summary ---
Author Organization [facility] Address [address] [place] [address] Care Team Providers Care Fire Engineer Name Role Phone Unavailable Primary Care Provider Unavailabl e Social History Tobacco Use Types Packs/Day Years Used Date Smoking Tobacco: Never Assessed Comments Unknown Sex and Gender Information Value Date Recorded Sex Assigned at Not on file Legal Sex Female 6:13 PM CDT Gender Identity Not on file Sexual Orientation Not on file Plan of Treatment Health Maintenance Due Date Last Done Comments Cervical Cancer Screening Pa p Smear (Age 21 to 29) Every 3 Years 1997 Cervical Cancer Screening 1997 Annual Physical 01/17/2000 Hepatitis C 2015 DTaP, Tdap and Td Vaccines ( 1 - Tdap) 01/17/2016 Hepatitis B Vaccines (1 of 3 - 19+ 3-dose series) 01/17/2016 COVID-19 Vaccine (2023-2 5 season) 2023 Influenza Adult (#1) 2023 HPV Vaccines Aged Out No longer eligi ble based on patient's age to complete this topic Meningococcal B Vaccine Aged Out No l onger eligible based on patient's age to complete this topic Meningococcal Vaccine Aged Out No nate ashlee eligible based on patient's age to complete this topic Pneumococcal Vaccine: Pediat rics (0 to 5 Years) and At-Risk Patients (6 to 64 Years) Aged Out No longer eligible b ased on patient's age to complete this topic RSV Immunizations Under 20 Months Aged Out No longer eligible based on patient's age to complete this topic
--- OUTSIDE RECORDS SUMMARY | 2024-04-11 08:14 | XMS_ITS | Referral Summary ---
Author Organization [facility] Address [address] [place] [address] Care Team Providers Care Oral Health Therapist Name Role Phone Miscellaneous, Not In File Primary Care Provider Unavailable Allergies No known active allergies Medications ondansetron ODT (ZOFRAN-ODT) 4 mg disintegrating tablet Take 1 tablet (4 mg total) by mouth every 8 (eight) hours as needed for nausea or vomiting 20 tablet 10/13/19 20 Active Additional Information Patient not taking.Reported on 06/19/2021 ondansetron (ZOFRAN) 4 mg tablet Take 1 tablet (4 mg total) by mouth every 6 (six) hours 12 tablet 02/28/19 24 Active Active Problems No known active problems Social History Tobacco Use Types Packs/Day Years Used Date Smoking Tobacco: Every Day Cigarettes 0.1 9 Smokeless Tobacco: Never Tobacco Cessation:Ready to Q uit: Not Asked; Counseling Given: Not Answered Alcohol Use Standard Drinks/Week Comments Yes 0 (1 standard drink = 0.6 oz pur e alcohol) Personal Safety Answer Date Recorded Have you ever been in or are you currently in a harmful physical or emotional relationship or is someone making you feel afraid or unsafe? Denies 02/27/2023 Comments No Sex and Gender Information Value Date Recorded Sex Assigned at Not on file Legal Sex Female 11:05 PM CDT Gender Identity Not on file Sexual Orientation Not on file Last Filed Vital Signs Vital Sign Reading Time Taken Comments Blood Pressure 141/76 02/28/2023 2:38 AM DIRECTOR OF CONTRACTS Pulse 74 02/28/2023 2:38 AM DIRECTOR OF CONTRACTS Temperature 36.6 C (97.8 F) 02/28/2023 2:38 AM DIRECTOR OF CONTRACTS Respiratory Rate 16 02/28/2023 2:38 AM DIRECTOR OF CONTRACTS Oxygen Saturation 98% 02/28/2023 2:38 AM DIRECTOR OF CONTRACTS Inhaled Oxygen Concentration - - Weight 54.4 kg (120 lb) 02/27/2023 10:03 PM DIRECTOR OF CONTRACTS Height 162.6 cm (5' 4 ) 02/27/2023 10:03 PM DIRECTOR OF CONTRACTS Body Mass Index 20.6 02/27/2023 10:03 PM DIRECTOR OF CONTRACTS Plan of Treatment Not on file Insurance [facility] Care Teams Oral Health Therapist Relationship Specialty Start Date End Date Miscellaneous, Not In File PCP - General 01/20/22
--- OUTSIDE RECORDS SUMMARY | 2024-04-11 08:14 | XMS_ITS | Clinical Summary ---
Author Organization [facility] Address [address] [place] [address] Care Team Providers Care Tip Stretcher Name Role Phone Miscellaneous, Not In File [...] Active Active Problems No known active problems Surgical History Surgery Date Site/Laterality Comments NO PAST SURGERIES Medical History Medical History Date Comments Alcohol abuse Drug abuse (CMS/[facility]) ([facility]) Family History Medical History Relation Name Comments Breast cancer Maternal Grandfather Breast cancer Maternal Grandmother Relation Name Status Comments Maternal Grandfather Maternal Grandmother Social History Tobacco Use Types Packs/Day Years [...] on file Sexual Orientation Not on file Obstetrics History Last Filed Vital Signs Vital Sign Reading Time Taken Comments Blood Pressure 141/76 02/28/2023 2:38 AM FINANCIAL SERVICES ASSISTANT Pulse 74 02/28/2023 2:38 AM FINANCIAL SERVICES ASSISTANT Temperature 36.6 C (97.8 F) 02/28/2023 2:38 AM FINANCIAL SERVICES ASSISTANT Respiratory Rate 16 02/28/2023 2:38 AM FINANCIAL SERVICES ASSISTANT Oxygen Saturation 98% 02/28/2023 2:38 AM FINANCIAL SERVICES ASSISTANT Inhaled Oxygen Concentration - - Weight 54.4 kg (120 lb) 02/27/2023 10:03 PM FINANCIAL SERVICES ASSISTANT Height 162.6 cm (5' 4 ) 02/27/2023 10:03 PM FINANCIAL SERVICES ASSISTANT Body Mass Index 20.6 02/27/2023 10:03 PM FINANCIAL SERVICES ASSISTANT Plan of Treatment Health Maintenance Due Date Last Done Comments Cervical Cancer Screening 1997 Depression Screening 1997 Hepatitis C Screening 1997 Pneumococcal vaccine <65 (1 of 2 - PCV) 2003 Varicella Vaccines (1 of 2 - 13+ 2-dose series) 2010 Hepatitis B Screening 2015 Regular Well Visit/Exam 18-64 2015 Covid-19 Vaccine (3 - 2023-2 5 season) 2023 09/11/2020, 08/12/2020 Influenza Vaccine (#1) 2023 DTaP/Tdap/Td Vaccine (2 - Td or Tdap) 08/23/2030 08/23/2020 HPV Vaccines Aged Out No longer eligi ble based on patient's age to complete this topic Insurance [facility] Care Teams Tip Stretcher Relationship Specialty Start Date End Date Miscellaneous, Not In File PCP - General 01/20/22
[2024-04-11] MEDS: SODIUM CHLORIDE 0.9% IV 1,000 ML 999 ML IV CONT (08:20)
[2024-04-11] MEDS: ONDANSETRON INJ 4 MG/2 ML VIAL IV PUSH (08:20)
[2024-04-11] MEDS: KETOROLAC 30 MG/ML VIAL (*BKC) IV PUSH (08:20)
[2024-04-11 08:33] LABS: Basophils Absolute Auto 0.1 K/mm3 (0.0-0.1); Basophils Percent Auto 0.5 % (0.2-1.2); Eosinophils Percent Auto 0.2 % (0-4.4); Hemoglobin 14.2 g/dL (12.0-15.0); Immature Granulocyte Absolute 0.08 K/mm3 (0.00-0.031); Immature Granulocyte Percent A 0.6 % (0-0.5); Lymphocytes Absolute Auto 1.99 K/mm3 (0.9-3.2); Mean Corpuscular HGB Conc 33.8 g/dl (32-36); Mean Corpuscular Hemoglobin 30.5 pg (26-34); Mean Corpuscular Volume 90.1 fl (80-100); Mean Platelet Volume 10.2 fl (7.4-10.4); Monocytes Absolute Auto 0.7 K/mm3 (0.1-0.6); Monocytes Percent Auto 5.5 % (2.6-8.5); Neutrophils Absolute Auto 10.4 K/mm3 (1.3-6.7); Neutrophils Percent Auto 78.2 % (45.5-73.1); Platelet Count Result 351 k/mm3 (150-375); Red Blood Count 4.66 M/mm3 (4.2-5.4); Red Cell Distribution Width 12.8 % (11.5-14.5); White Blood Count 13.3 K/mm3 (4.5-10.0)
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
[2024-04-11 08:39] LABS: Alanine Aminotransferase 16 U/L (6-35); Alkaline Phosphatase 79 U/L (38-126); Anion Gap 16 mmol/L (4-12); Aspartate Amino Transferase 22 U/L (14-36); Bilirubin,Total 0.4 mg/dL (0.2-1.3); Blood Urea Nitrogen 7 mg/dL (7-17); Calcium 9.4 mg/dL (8.4-10.2); Carbon Dioxide 21 mmol/L (22-30); Chloride 103 mmol/L (98-107); Estimated CRCL calculation 131 ml/min; Estimated Glomerular Filt Rate > 60; Ethanol 50 mg/dL (<10); Glucose 105 mg/dL (65-110); Potassium 4.3 mmol/L (3.4-5.0); Sodium 140 mmol/L (137-145)
[2024-04-11 09:51] LABS: Add Urine Microscopic? NO; Appearance Urine Clear (Clear); Bilirubin Urine Negative (Negative); Blood Urine Negative (Negative); Color Urine Yellow (Yellow); Glucose Urine UA Negative (Negative); Ketones Urine Negative (Negative); Leukocyte Esterase Ur Negative LEU/UL (Negative); Nitrate Urine Negative (Negative); Protein Urine Negative (Negative); Specific Grav Ur 1.011 (1.001-1.035); Urobilinogen Urine 0.2 mg/dL (<2.0)
[2024-04-11 10:08] LABS: BEDSIDEPREGUCG Negative (Negative)
== END 2024-04-11 10:26 | disposition home or self-care (01) ==
PROVIDERS: Emergency Provider Emergency Medicine
DX: S06.0X0A Concussion without loss of consciousness, initial encounter (principal); S63.612A Unspecified sprain of right middle finger, initial encounter; Z87.891 Personal history of nicotine dependence; Y04.8XXA Assault by other bodily force, initial encounter
CPT/HCPCS: 36415; 70450; 73130; 80053; 81003; 81025; 82077; 85025; 96361; 96374; 96375; 99284; J1885; J2405; J7030